=== PATIENT | male | born 2000 | race Caucasian/White ===

== ENCOUNTER 2022-12-17 14:04 | Emergency (ER) | payer OTHER ==
[2022-12-17 14:14] VITALS: TEMP 98.3
--- NOTE | 2022-12-17 14:52 | XR ---
EXAMINATION TYPE: XR wrist complete LT DATE OF EXAM: 12/17/2022 2:45 PM INDICATION: Patient age:Male; 21 years old; Reason for study: wrist pain, foosh; COMPARISON: None TECHNIQUE: left wrist was examined in the. Frontal, navicular, lateral, and oblique. FINDINGS/IMPRESSION: Fracture of the mid pole of the scaphoid. Further evaluation with CT for confirmation may be of benef it. Fracture appears subacute/chronic. Correlate with history of trauma. No additional acute fracture s. Soft tissue swelling around the wrist.
--- NOTE | 2022-12-17 15:13 | ED ---
General Adult HPI - General Chief complaint: Extremity Injury, Upper Stated complaint: Left wrist injury Time Seen by Provider: 12/17/22 14:36 Source: patient Mode of arrival: ambulatory - History of Present Illness Initial comments: Dictation was produced using [employer] dictation software. please excuse any grammatical, word or spelling errors. Chief Complaint: 21-year-old male left wrist injury History of Present Illness: 21-year-old male who has past medical history of left wrist injury suffered in 2017 through high school football. He suffered his wrist back then and had severe pain however he did not seek any medical attention. Patient currently patient at [facility] detox facility. He fell on outstretched hand playing basketball yesterday. Patient complaining of left wrist pain. The ROS documented in this emergency department record has been reviewed and confirmed by me. Those systems with pertinent positive or negative responses h ave been documented in the HPI. All other systems are other negative and/or noncontributory. - Related Data Allergies Allergy/AdvReac Type Severity Reaction Status Date / Time No Known Allergies Allergy Verified 12/17/22 14:14 Review of Systems ROS Statement: Those systems with pertinent positive or pertinent negative responses have been documented in the HPI. ROS Other: All systems not noted in ROS Statement are negative. Past Medical History Past Medical History: Hypertension History of Any Multi-Drug Resistant Organisms: None Reported Past Surgical History: Appendectomy Past Psychological History: No Psychological Hx Reported Smoking Status: Current every day smoker Past Alcohol Use History: Heavy Past Drug Use History: None Reported General Exam - General Exam Comments Initial Comments: PHYSICAL EXAM: General Impression: Alert and oriented x3, not in acute distress HEENT: Normocephalic atraumatic, extra-ocular movements intact, pupils equal and reactive to light bilaterally, mucous membranes moist. Cardiovascular: Heart regular rate and rhythm Chest: Able to complete full sentences, no retractions, no tachypnea Musculoskeletal: Pulses present and equal in all extremities, no peripheral edema Motor: no focal deficits noted Neurological: CN II-XII grossly intact, no focal motor or sensory deficits noted Skin: Intact with no visualized rashes Psych: Normal affect and mood Left wrist: Pain at the scaphoid tubercle, pain at the scaphoid with axial loading, anatomic snuffbox tenderness Course Vital Signs 12/17/22 12/17/22 14:11 14:29 Temperature 98.3 F Pulse Rate 78 68 Respiratory 18 16 Rate Blood Pressure 144/73 134/70 O2 Sat by Pulse 99 100 Oximetry Medical Decision Making - Medical Decision Making Was pt. sent in by a medical professional or institution ([facility] Fra[facility], [facility], urgent care, hospital, or halfway...) When possible be specific @ -No Did you speak to anyone other than the patient for history (EMS, parent, family, police, friend...)? What history was obtained from this source @ -No Did you review nursing and triage notes (agree or disagree)? Why? @ -I reviewed and agree with nursing and triage notes Were old charts reviewed (outside hosp., previous admission, EMS record, old EKG, old radiological studies, urgent care reports/EKG's, halfway records)? Report findings @ -No old charts were reviewed Differential Diagnosis (chest pain, altered mental status, abdominal pain women, abdominal pain men, vaginal bleeding, musculoskeletal, weakness, fever, dyspnea, syncope, headache, dizziness, GI bleed, back pain, seizure, CVA, palpatations, mental health)? @ -not applicable EKG interpreted by me (3pts min.). @ -None done X-rays interpreted by me (1pt min.). @ -Wrist x-ray shows fracture of the mid scaphoid that appears subacute versus chronic. CT interpreted by me (1pt min.). @ -None done U/S interpreted by me (1pt. min.). @ -None done What testing was considered but not performed or refused? (CT, X-rays, U/S, labs)? Why? @ -None What meds were considered but not given or refused? Why? @ -None Did you discuss the management of the patient with other professionals (professionals i.e. LOU[facility] Fraire, [facility], lab, RT, psych nurse, social work administrator, sound truck operator, teacher, engineering officer, showcase trimmer)? Give summary @ -No Was smoking cessation discussed for >3mins.? @ -No Was critical care preformed (if so, how long)? @ -No Were there social determinants of health that impacted care today? How? (Homelessness, low income, unemployed, alcoholism, drug addiction, transportation, low edu. Level, literacy, decrease access to med. care, fpc, rehab)? @ -No Was there de-escalation of care discussed even if they declined (Discuss DNR or withdrawal of care, Hospice)? DNR status @ -No What co-morbidities impacted this encounter? (DM, HTN, Smoking, COPD, CAD, Cancer, CVA, ARF, Chemo, Hep., AIDS, mental health diagnosis, sleep apnea, morbid obesity)? @ -None Was patient admitted / discharged? Hospital course, mention meds given and route, prescriptions, significant lab abnormalities, going to OR and other pertinent info. @ -21-year-old male presents emergency Department with left wrist injury. Vital signs are stable. Patient states that he had severe left wrist injury in 2017. X-ray shows scaphoid fracture that appears to be subacute or chronic in nature. Patient has clinical exam findings concerning for scaphoid injury. Patient placed in a ulnar gutter splint. Given referral to orthopedic surgery. Undiagnosed new problem with uncertain prognosis? @ -No Drug Therapy requiring intensive monitoring for toxicity (Heparin, Nitro, Insulin, Cardizem)? @ -No Were any procedures done? @ -No Diagnosis/symptom? Acute, or Chronic, or Acute on Chronic? Uncomplicated (without systemic symptoms) or Complicated (systemic symptoms)? @ -1. Scaphoid injury Side effects of treatment? @ -No Exacerbation, Progression, or Severe Exacerbation? @ -No Poses a threat to life or bodily function? How? (Chest pain, [place], [place], pneumonia, PE, COPD, DKA, ARF, appy, cholecystitis, CVA, Diverticulitis, Homicidal, Suicidal, threat to staff... and all critical care pts) @ -No Disposition Clinical Impression: Scaphoid fracture Disposition: HOME SELF-CARE Condition: Fair Instructions (If sedation given, give patient instructions): Wrist Injury (ED) Is patient prescribed a controlled substance at d/c from ED?: No Referrals: Karlo Tomlinson MD [STAFF PHYSICIAN] - 1-2 days Time of Disposition: 15:13
[2022-12-17 16:05] VITALS: BP 139/87; PULSE 65; RESP 18
== END 2022-12-17 16:25 | disposition home or self-care (01) ==
LOC: EC 14:04
DX: S62.002A Unspecified fracture of navicular [scaphoid] bone of left wrist, initial encounter for closed fracture (principal); I10 Essential (primary) hypertension; F17.200 Nicotine dependence, unspecified, uncomplicated; W18.39XA Other fall on same level, initial encounter; Y93.67 Activity, basketball
CPT/HCPCS: 29125; 99283